=== PATIENT | male | born 1980 | race Caucasian/White ===

== ENCOUNTER 2023-09-30 00:18 | Emergency (ER) | payer OTHER, MEDICAID, SELFPAY ==
[2023-09-30 00:30] VITALS: BP 111/78; PULSE 79; RESP 16; TEMP 36.9; O2SAT 95; BMI 31.2
--- NOTE | 2023-09-30 01:07 | ED_ITS ---
HPI - Skin/Abscess/Foreign Bdy General Chief complaint: Skin/Abscess/Foreign Body Stated complaint: POSS BOIL ON FOREHEAD Time Seen by Provider: 09/30/23 00:33 Source: patient Mode of arrival: walk-in Limitations: no limitations History of Present Illness HPI narrative: This 42-year-old male presents for evaluation of a lump in the middle of his forehead. He states it has been there for the past several weeks. He states he got it was a pimple and he tried to pop it after had been there for a period of time. He states that he felt a popping sensation when he was applying pressure to it and thought that it had opened up but at that time nothing really came out besides a small amount of bloody fluid and it seemed to spread. He has had cysts on his scalp in the past. He states he was pressured by his to come to the emergency department and get that checked out and stopped at his shop and accidentally cut his right middle finger on a piece of metal in his shop. He has an approximately 2 cm laceration at the distal end of the right middle finger that overlies the DIP joint but stops just before the fingernail. There is mild active bleeding. There is no numbness or tingling. He does not know the date of his last tetanus shot. Related Data Home Medications Medication Instructions Recorded Confirmed hydrocodone 5 mg-acetaminophen 325 1 tab PO DAILY 09/30/23 09/30/23 mg tablet Allergies Allergy/AdvReac Type Severity Reaction Status Date / Time No Known Drug Allergies Allergy Verified 09/30/23 00:34 Review of Systems ROS Status of ROS 10 or more systems reviewed and unremark able except as noted in history and below [facility] Social History Smoking status: Current every day smoker Exam Narrative Exam Narrative: Nurses note and vital signs reviewed and patient is not hypoxic. General: The patient appears well and in no apparent distress. Patient is resting comfortably on cart. Skin: Warm, dry, no pallor noted. There is no rash noted. on the mid-forehead, there is a non-tender, soft mass, approximately 1.5 x 1 ccm. The dependent portion is mildly fluctuant. There is no local redness or drainage. This is consistent with a cyst; either sebaceous vs dermoid Head: Normocephalic, atraumatic Eye: Normal conjunctiva, no drainage, EOMI. PERRL Ears, Nose, Mouth, and Throat: oral mucosa is moist. Cardiovascular: Regular Rate and Rhythm Respiratory: Patient is in no distress, no accessory muscle use, lungs are clear to auscultation, no wheezing, rales or rhonchi Musculoskeletal: 2cm laceration to RMF overlying the DIP joint with mild active bleeding, no appreciable tendon involvement, N/V/M intact. Neurological: A&O x4, normal speech Psychiatric: Cooperative Constitutional Vital Signs, click to edit/add: Last Vital Signs Temp 98.4 F 09/30/23 00:30 Pulse 79 09/30/23 00:30 Resp 16 09/30/23 00:30 BP 111/78 09/30/23 00:30 Pulse Ox 95 09/30/23 00:30 O2 Del Method Room Air 09/30/23 00:30 Course Vital Signs Vital signs: Vital Signs Temperature 98.4 F 09/30/23 00:30 Pulse Rate 79 09/30/23 00:30 Respiratory Rate 16 09/30/23 00:30 Blood Pressure 111/78 09/30/23 00:30 Pulse Oximetry 95 09/30/23 00:30 Oxygen Delivery Method Room Air 09/30/23 00:30 Temperature 98.4 F 09/30/23 00:30 Pulse Rate 79 09/30/23 00:30 Respiratory Rate 16 09/30/23 00:30 Blood Pressure 111/78 09/30/23 00:30 Pulse Oximetry 95 09/30/23 00:30 Oxygen Delivery Method Room Air 09/30/23 00:30 MDM - Skin/Abscess/Foreign Bdy MDM Narrative Medical decision making narrative: This 42-year-old male presents for evaluation of a nontender, mobile lump in the middle of his forehead that has been present for the past several weeks. He has had cysts in the past. He states that he tried to pop this thinking it was a pimple and he did feel a pop but the area just became larger at that time. This does not appear to be an abscess or pimple but more likely a cyst as it is nontender, noninflamed and mobile with a small amount of fluctuance at the most dependent portion of the cyst. He also cut his finger before coming to the emergency department and had a two centimeter laceration overlying his right middle finger. This was closed with sutures. He will be referred to outpatient dermatology for further evaluation and management of his cysts. Discharge Plan Discharge Chief Complaint: Skin/Abscess/Foreign Body Clinical Impression: Dermoid cyst of forehead, Laceration of finger Patient Disposition: Home, Self-Care Time of Disposition Decision: 01:07 Condition: Good Prescriptions / Home Meds: No Action hydrocodone-acetaminophen 5-325 mg tablet 1 tab PO DAILY Instructions: Care For Your Stitches (ED), Finger Laceration (ED) Additional Instructions: Keep your right index finger clean and dry. Apply bacitracin daily. Sutures can be removed in 10-14 days. Referrals: [facility] [Physician] - 1 week (Forehead cyst) Cami Stratton NP [Primary Care Provider] - 1 week Stand Alone Forms: Portal Instructions Procedures ED Procedure Instructions Procedures Procedures: RMF laceration repair; Right hand was soaked in warm Hibiclens and water. Laceration edges were infiltrated with 1% lidocaine. When anesthesia was obtained, 6, 3-0 ethilon sutures were placed into the laceration edges with good wound edge approximation. Pt tolerated procedure well. A bacitracin dressing was applied by the nursing staff and tetanus was updated. Wound and suture care instructions were given to the patiene who verbalizes understanding.
[2023-09-30] MEDS: ADACEL DIPH,PERTUSS(ACELL),TET VAC/PF 0.5 ML ADULT SYRINGE IM (01:18)
[2023-09-30] MEDS: BACITRACIN OINTMENT 28.4 GM TUBE 1 APPLIC TOPICAL (01:20)
[2023-09-30] MEDS: LIDOCAINE HCL 1% 100 MG/10 ML MDV INJ (01:20)
[2023-09-30 01:25] VITALS: PULSE 68; RESP 16; O2SAT 98
== END 2023-09-30 01:25 | disposition home or self-care (01) ==
PROVIDERS: Emergency Provider Emergency Medicine; PCP Nurse Practitioner
DX: D23.39 Other benign neoplasm of skin of other parts of face (principal); S61.212A Laceration without foreign body of right middle finger without damage to nail, initial encounter; W26.9XXA Contact with unspecified sharp object(s), initial encounter; F17.210 Nicotine dependence, cigarettes, uncomplicated
CPT/HCPCS: 12001; 90471; 90715; 99284